=== PATIENT | female | born 1940 | race Caucasian/White ===

== ENCOUNTER 2020-08-13 13:51 | Inpatient (IN) | payer OTHER ==
[~2020-08-13] VITALS: Ht 167.6 cm; Wt 64.0 kg
[~2020-08-13 13:51] MED LIST: ASPIRIN EC81 M1 PO; CALCIUM + VIT1 EACH PO; CQ-10 PO; NAPROSYN250 MG PO; NORCO 5-325 TA1 EACH PO; REFLUX MEDICATION PO
[2020-08-13 14:03] VITALS: BP 121/65
[2020-08-13] MEDS ORDERED: ARICEPT10 M1 PO (14:09)
[2020-08-13] MEDS ORDERED: ABILIFY 5 MG TAB5 M1 PO (14:09)
[2020-08-13] MEDS ORDERED: TOPROL XL50 MG PO (14:10)
[2020-08-13] MEDS ORDERED: DULOXETINE HCL60 MG PO (14:11)
[2020-08-13] MEDS ORDERED: CARBIDOPA-LEVO1 EAC5 PO (14:11)
[2020-08-13 14:27] LABS: ABSOLUTE BASOPHILS 0.1 thou/uL (0.0-0.2); ABSOLUTE EOSINOPHILS 0.1 thou/uL (0.0-0.7); ABSOLUTE LYMPHOCYTES 2.2 thou/uL (0.8-5.3); ABSOLUTE MONOCYTES 0.4 thou/uL (0.0-1.2); ABSOLUTE NEUTROPHILS 4.4 thou/uL (1.6-8.1); BASOPHILS 0.7 %; EOSINOPHILS 1.9 %; HEMATOCRIT 34.3 % (37.0-47.0); HEMOGLOBIN 11.9 gm/dL (12.0-15.0); LYMPHOCYTES 30.2 %; MCH 31.7 pg (26.0-34.0); MCHC 34.6 g/dL (28.0-37.0); MCV 91.8 fL (80.0-100.0); MONOCYTES 5.8 %; MPV 7.9 fl. (7.2-11.1); NUCLEATED RBCS 0 /100WBC; PLATELET COUNT* 272 thou/uL (150-400); POLYS 61.4 %; RBC 3.74 mil/uL (4.20-5.00); RDW-CV 13.7 % (10.5-14.5); WBC 7.2 thou/uL (4.0-11.0)
[2020-08-13 14:39] LABS: CALCIUM 8.8 mg/dL (8.5-10.1); CREATININE 1.5 mg/dL (0.6-1.3); POTASSIUM 3.4 mmol/L (3.5-5.1)
[2020-08-13 14:44] LABS: ALBUMIN 2.9 g/dL (3.4-5.0); TOTAL BILIRUBIN 1.1 mg/dL (<0.1-1.0)
[2020-08-13 16:53] LABS: URINE BILIRUBIN NEGATIVE (Negative); URINE BLOOD NEGATIVE (Negative); URINE CLARITY CLOUDY; URINE COLOR YELLOW; URINE GLUCOSE-RANDOM NEGATIVE (Negative); URINE KETONES TRACE (Negative); URINE LEUKOCYTES NEGATIVE (Negative); URINE NITRITE POSITIVE (Negative); URINE PROTEIN NEGATIVE (Negative); URINE SPECIFIC GRAVITY 1.025 (1.005-1.030)
[2020-08-13 17:01] LABS: SQUAMOUS 0-3 Few /LPF (0-3)
[2020-08-13 17:02] LABS: BACTERIA >30 Many /HPF (None Seen); CASTS None Seen /LPF (None Seen); CRYSTALS None Seen /LPF (None Seen); URINE RBC 0-2 Rare /HPF (0-2); URINE WBC 0-5 Rare /HPF (0-5)
[2020-08-13 17:03] LABS: AMORPHOUS URATES Few /LPF (None Seen)
--- NOTE | 2020-08-13 17:26 | EKG ---
[place] [address] ELECTROCARDIOGRAM REPORT Name: DOMONIQUEVIKY I Room: [facility]#: [id number] Admission: 08/13/20 Attend Phys: Discharge: Date of : 36 Date of Service: 08/13/20 1405 Report #: [id number] THIS REPORT FOR: //name// [facility] ED Test Date: 2020-08-13 Test Time: 14:05:42 Pat Name: VIKY YOUSSEF Department: Room: Gender: F Mortgage Loan Closer: [facility] : 1940 Requested By: Jorgito Perea Order Number: [id number] MD: Jj Sommer Measurements Intervals [place] Rate: 55 P: 7 MT: 127 QRS: -16 QRSD: 120 T: 90 QT: 597 QTc: 572 Interpretive Statements Sinus rhythm Borderline T abnormalities, anterior leads No previous ECG available for comparison Electronically Signed On 08-13-2020 17:26:10 CDT by Jj Sommer [email or web address] <ELECTRONICALLY SIGNED> By: Jj Sommer MD, [facility] 08/13/20 1726 140 04 Jj Sommer MD, [facility] /EPI
[2020-08-13 19:59] VITALS: BP 113/45
[2020-08-13 20:30] VITALS: BP 118/50
--- NOTE | 2020-08-14 04:19 | NUR ---
PT ARRIVED TO THE UNIT AT 2029. CONFUSED AND FORGETFUL. DENIED PAIN. VSS ON RA. IVF GIVEN ORDERED. PT INCONTINENT. TURNS, HOURLY ROUNDINGS COMPLETED. BED ALARM ON FOR SAFETY. WILL CONTINUE TO MONITOR.
--- NOTE | 2020-08-14 13:59 | NUR ---
Pt is A&Ox1. CM spoke with Pt's stepdtr/dpoa via phone. Pt resides at home and her grandson stays with her. Grandson assists with ADLs and IADLs. Per DPOA, Pt's and 2 sons past away within the past year, Pt was driving and independent prior to these deaths, now is pretty much wc bound. Per DPOA, Pt was able to ambulate short distances up until 2 weeks ago, now prefers to just stay in bed, when up, she sometimes can help with transfers. Hx of HH. DPSAMMIE inquired into hospice at [facility], CM asked that family speak with Dr romero prior to making any decisions, hospice order written, in case plan is home with hospice. Neuro workup pending. Therapy evals ordered. CM following for dispo plans. Pt's PCP is Dr Lynn at [facility].
[2020-08-14 16:00] VITALS: BP 114/58
[2020-08-14 20:00] VITALS: BP 152/51
[2020-08-15 05:25] LABS: ABSOLUTE EOSINOPHILS 0.1 thou/uL (0.0-0.7); ABSOLUTE LYMPHOCYTES 1.9 thou/uL (0.8-5.3); ABSOLUTE MONOCYTES 0.4 thou/uL (0.0-1.2); ABSOLUTE NEUTROPHILS 3.6 thou/uL (1.6-8.1); BASOPHILS 0.6 %; EOSINOPHILS 2.3 %; HEMATOCRIT 31.4 % (37.0-47.0); LYMPHOCYTES 31.1 %; MCH 31.9 pg (26.0-34.0); MCHC 35.1 g/dL (28.0-37.0); MCV 90.9 fL (80.0-100.0); MONOCYTES 6.7 %; MPV 7.8 fl. (7.2-11.1); NUCLEATED RBCS 0 /100WBC; PLATELET COUNT* 222 thou/uL (150-400); POLYS 59.3 %; RBC 3.45 mil/uL (4.20-5.00); RDW-CV 13.5 % (10.5-14.5)
[2020-08-15 05:39] LABS: CALCIUM 8.2 mg/dL (8.5-10.1); CREATININE 1.1 mg/dL (0.6-1.3); POTASSIUM 3.3 mmol/L (3.5-5.1)
--- NOTE | 2020-08-15 06:16 | NUR ---
PT ORIENTED TO HERSELF ONLY. CONFUSED AND SAID SHE NEEDED TO CALL HER . MEDS GIVEN ORDERED. PT PULLED HER IV THIS MORNING. DENIED PAIN. CALL LIGHT WITHIN REACH. WILL CONTINUE TO MONITOR.
--- NOTE | 2020-08-15 12:57 | NUR ---
Plan dc to [facility] tomorrow, per . PAULETTE spoke with admissions at [facility], faxed referral and informed of possible dc tomorrow. PAULETTE left message for Pt's step dtr/DPOA of plans. [facility] p:[phone] f:[phone]
[2020-08-15 16:00] VITALS: BP 138/79
--- NOTE | 2020-08-15 18:09 | NUR ---
PT HAS HAD A TERRIFIC DAY. SHE IS ALERT TO SELF AND SITUATION ONLY. BOUTS OF CONFUSION THAT ARE WORSE IN PM ASKING ABOUT "THE BOYS" AND HER A LOT. SHE AMBULATED WITH PT TO THE TOILET HAVING A BM, AND BACK TO CHAIR. SHE HAS EATEN MOST OF ALL MEALS TRAYS INDEPENDENTLY. PT HAS TAKEN MEDS PO WITH SIPS OF WATER. SHE HAS HAD FAMILY TO THE BEDSIDE FOR SUPPORT.VITALS HAVE BEEN BETTER TODAY WITH INCREASED BP THIS AM.NEW IV WAS PLACED BY [facility] WITH [facility].
[2020-08-15 21:05] VITALS: BP 143/79
[2020-08-15 21:06] LABS: ANA INTERPRETATION Negative (())
--- NOTE | 2020-08-16 05:45 | NUR ---
PT ALERT TO SELF, ATTEMPTED TO GET OUT OF BED TO WANDER, DO CHORES ETC. SHE IS INCONTINENT OF URINE BUT CAN GET UP WITH ASSISTANCE, GAIT BELT AND WALKER TO COMMODE. SHE IS URINATING REGULARLY. SHE HAS CONFUSION BUT NOT COMBATIVE. SHE RECEIVED ALL MEDS SCHEDULED. NO APPARENT PAIN. SHE SLEPT VERY WELL ONCE SHE GOT TO SLEEP AROUND 10 PM. DID WITNESS SOME SUNDOWNING BEHAVIOR BUT OVERALL AN UNEVENTFUL NIGHT.
[2020-08-16 08:10] VITALS: BP 169/89
[2020-08-16] MEDS ORDERED: VITAMIN B-121000 MC2 SUBLING (08:27)
[2020-08-16 16:48] VITALS: BP 169/89
[2020-08-16 16:55] VITALS: BP 159/80
--- NOTE | 2020-08-16 17:07 | NUR ---
PLAN FOR THE PT TO D/C HOME TODAY WITH HH, THE PT'S SON/DPOA DECLINED PT'S D/C TO [facility]. PT'S SON REQUEST HH WITH [facility]. CM FAXED PTS CLINICAL INFO AND D/C ORDERS TO [facility]. PT'S SON AND GRANDSON TO PROVIDE PT TRANSPORT HOME. CM WILL REMAIN AVAILABLE TO ASSIST AND FOLLOW NEEDED. [facility] PHONE: [phone] FAX: [phone]
[2020-08-16 21:00] VITALS: BP 152/65
--- NOTE | 2020-08-17 05:28 | NUR ---
PT ALERT TO SELF. SHE IS ON ROOM AIR, INCONTINENT OF URINE, Q2 TURN. SHE RECEIVED ALL MEDS SCHEDULED, TAKES PILLS WELL. ENCOURAGED HYDRATION. SHE DID NOT GET UP THIS SHIFT. NO APPARENT PAIN OR DISCOMFORT.
[2020-08-17 07:40] VITALS: BP 157/83
--- NOTE | 2020-08-17 12:03 | NUR ---
Faxed updated info to [facility]. Awaiting call back for acceptance.
--- NOTE | 2020-08-17 13:05 | NUR ---
PHONE CALL TO [facility] FOR REPORT. [facility] STATES THE NURSE TRISTON JUST TOOK A LUNCH BREAK. WILL CALL BACK TO GIVE REPORT.
[2020-08-17 15:41] VITALS: BP 137/65
--- NOTE | 2020-08-17 16:12 | NUR ---
PT ORIENTED TO SELF AND SITUATION. PT LEFT VIA [facility]. REPORT CALLED TO [facility] @ [phone]. PT TO GO TO [facility]. SON ROXY NOTIFIED AT 1528 THAT PATIENT IS LEAVING AND ROOM NUMBER. NO DISTRESS NOTED AT THIS TIME.
[2020-08-17] MEDS ORDERED: PROTONIX40 M2 PO (17:09)
--- NOTE | 2020-08-18 22:26 | CON ---
[address] [address] CONSULTATION Name: VIKY YOUSSEF I Room: [address] IN ..#: [id number] Admission: 08/13/20 Attend Phys: Blanca Fernandez MD Discharge: 08/17/20 Date of : 36 Report #: [id number] THIS REPORT FOR: cc: [facility] - Clinic physician unknown [facility] - Clinic physician unknown Devon Andre MD ~ DOC #: [id number] Devon Andre MD DATE OF CONSULTATION: 08/14/2020 HISTORY OF PRESENT ILLNESS: This is an 83-year-old female patient who is pretty apathetic. She does not provide much history. It becomes very difficult to evaluate this patient. I reviewed the records. It looks like her eyes rolled out into her head at one time when she was visiting her 's grave. She has other deaths in the family. She is having progressive difficulty with ambulation and altered mental status. REVIEW OF SYSTEMS: Indicate that she has a history of Parkinson disease and vascular dementia as per her notes. I do not know where the diagnosis was made. She does have a history of carotid artery surgery, atherosclerotic disease of the arteries, hypertension, hyperlipidemia. I attempted 14-point review of system from the patient and this is all I can get. She denies any eyes, ENT, cardiac, respiratory, GI, , musculoskeletal, constitutional dermatological, hematological symptom associated with present symptomatology. PAST MEDICAL HISTORY: Positive for progressive decline in her mentation and physical ability. FAMILY HISTORY: Unremarkable. SOCIAL HISTORY: She does not smoke. PHYSICAL EXAMINATION: Examination indicates she is alert. She cannot tell me what month it is, what day it is, who the president is. She talks very little. Memory and fund of knowledge is diminished. Speech looks preserved. Cranial nerve examination II-XII was done that was difficult, but does not appear to be showing any gross abnormality. Similarly, she moves all 4 extremities and rather moved lower extremities reasonably well. ___ I did not make her walk and I could not look at the patient's fundus, but juiaus-cg-vout looks unremarkable. Her position sense is normal on both sides. Tone looks unremarkable. Pulses are palpable. She has no edema, cyanosis or jaundice. She is moderately obese. Her hearing and vision looks adequate. No thyroid mass was noticed. Blood pressure is 111/39, temperature is 97.9, pulse 59, [place] 18. [place] [address] CONSULTATION Name: VIKY YOUSSEF I Room: [address]#: [id number] Admission: 08/13/20 Attend Phys: Blanca Fernandez MD Discharge: 08/17/20 Date of : 36 Report #: [id number] WBC count is 7.2. White count is normal. IMPRESSION: This patient appeared to have advanced dementia, on top of that, she appeared to be depressed. If the family wants to proceed with the hospice, that is a reasonable thing to do. I have ordered a TSH, vitamin B12 and MRI on this patient. If they want to do some more aggressive treatment, then consultation can be done with the psychiatry in [facility] to see if they think a stay in their institution may be warranted in her case. Thank you very much for this referral. MD GABRIELA Swann/COLEMANU <ELECTRONICALLY SIGNED> By: Devon Andre MD 08/18/20 2226 1313 12Devon Andre MD /nt
--- NOTE | 2020-08-18 22:26 | EEG ---
[address] [address] EEG STUDY REPORT Name: VIKY YOUSSEF I Room: [address]#: [id number] Admission: 08/13/20 Attend Phys: Blanca Fernandez MD Discharge: 08/17/20 Date of : 36 Report #: [id number] THIS REPORT FOR: cc: [facility] - Clinic physician unknown [facility] - Clinic physician unknown Devon Andre MD ~ DOC #: [id number] Devon Andre MD DATE OF SERVICE: 08/15/2020 This patient is being evaluated for altered mental status. The EEG was done by placing the electrode by standard 10-20 system of electrode placement. Both referential and sequential montages were used for recording. Background activity in this patient's EEG is about 8 Hz and 30 microvolt. This patient became drowsy and that is associated with bilateral slowing and vertex sharp waves. Photic stimulation is unremarkable. Throughout the record, no active epileptiform activity was noticed. IMPRESSION: This patient's EEG demonstrated intermixed slowing on both sides, that is a nonspecific abnormality, which can occur with encephalopathy, effect of psychotropic medication, dementia, etc. Clinical correlation is recommended. Devon Andre MD PK/ERI <ELECTRONICALLY SIGNED> By: Devon Andre MD 08/18/20 2226 1106 [id number] Andre MD /kody
== END 2020-08-17 16:15 | DRG 682 ==
LOC: M.ERS 13:51 → M.ORTHSURG 18:04 → M.TBA-ER 18:04 → M.ORTHSURG 20:27
PROVIDERS: Emergency Medicine; Internal Medicine; Psychiatry & Neurology Neuromuscular Medicine; ADMIT Internal Medicine; ATTEND Internal Medicine
DX: N17.9 Acute kidney failure, unspecified (principal); G92 Toxic encephalopathy; N39.0 Urinary tract infection, site not specified; E44.0 Moderate protein-calorie malnutrition; G20 Parkinson's disease; F02.80 Dementia in other diseases classified elsewhere, unspecified severity, without behavioral disturbance, psychotic disturbance, mood disturbance, and anxiety; F01.50 Vascular dementia, unspecified severity, without behavioral disturbance, psychotic disturbance, mood disturbance, and anxiety; I10 Essential (primary) hypertension; R62.7 Adult failure to thrive; F32.9 Major depressive disorder, single episode, unspecified; E53.8 Deficiency of other specified B group vitamins; E78.5 Hyperlipidemia, unspecified; Z66 Do not resuscitate; Z20.822 Contact with and (suspected) exposure to COVID-19; Z79.899 Other long term (current) drug therapy; Z87.891 Personal history of nicotine dependence; Z68.22 Body mass index [BMI] 22.0-22.9, adult